=== PATIENT | female | born 1950 | race Caucasian/White ===

== ENCOUNTER 2018-01-26 13:07 | Inpatient (IN) | payer OTHER, MEDICARE ==
[~2018-01-26] VITALS: Ht 167.6 cm; Wt 138.0 kg
[2018-01-26 15:58] LABS: ABSOLUTE BASOPHIL COUNT 0 /CUMM (0.0-0.2); ABSOLUTE EOSINOPHIL COUNT 0.2 /CUMM (0.0-0.7); ABSOLUTE GRANULOCYTE CT 4.5 /CUMM (1.4-6.5); ABSOLUTE LYMPH COUNT 1.6 /CUMM (1.2-3.4); ABSOLUTE MONOCYTE COUNT 0.4 /CUMM (0.10-0.60); BASOPHIL % 0.7 % (0.0-2.0); EOSINOPHIL % 3.1 % (0-5); GRANULOCYTE % 66.6 % (42.2-75.2); HEMATOCRIT 43.3 % (37-47); MEAN CORPUSCULAR HGB 28.6 PG (27.0-31.0); MEAN CORPUSCULAR HGB CONC 32.7 G/DL (33.0-37.0); MEAN CORPUSCULAR VOLUME 87.6 FL (81.0-99.0); MEAN PLATELET VOLUME 8.6 FL (7.4-10.4); PLATELET COUNT 324 /CUMM (130-400); RBC DISTRIBUTION WIDTH 14.9 % (11.5-14.5); RED BLOOD CELL CT 4.94 /CUMM (4.20-5.40); WHITE BLOOD CELL COUNT 6.7 /CUMM (4.8-10.8)
--- NOTE | 2018-01-26 17:10 | ED GENERAL ADULT ---
History of Present Illness General Chief Complaint: Skin Rash/ Abcess Stated Complaint: SWELLING TO L SIDE OF FACE Source: patient Exam Limitations: no limitations Vital Signs & Intake/Output Vital Signs & Intake/Output Vital Signs Date Time Temp Pulse Resp B/P B/P Pulse O2 O2 Flow FiO2 Mean Ox Delivery Rate 01/26 1721 97.0 70 18 134/62 97 Room Air 01/26 1314 99.2 83 18 164/77 96 Room Air Room Air Allergies Coded Allergies: sulfamethoxazole (From BACTRIM) (HIVES 01/26/18) trimethoprim (From BACTRIM) (HIVES 01/26/18) Triage Note: TRIAGE: 67 Y/O FEMALE PRESENTS C/O BACTERIAL INFECTION/ SWELLING OT LEFT SIDE OF FACE SINCE SATURDAY. CURRENTLY ON ABX. TEMP IN TRIAGE: 99.2. Triage Nurses Notes Reviewed? yes Onset: Abrupt Duration: day(s): (5-6), constant, continues in ED, getting worse Timing: single episode today Injury Environment: home Severity: mild, moderate Severity Numbers: 7 No Modifying Factors: none LMP (ages 10-50): unknown : No Patient currently breastfeeds: No HPI: 67-year-old female past medical history of diabetes presents for evaluation of pain swelling and redness in her left maxillary/inferior orbital area. Patient reports that symptoms started 5 or 6 days ago to be getting worse. She went to her primary care doctor on and was started on cephalexin 500 mg 3 times daily. She's been taking this as directed reports that the redness pain and swelling is spreading. It is now starting to develop around her inferior eye. She reports that she has pain with extraocular motion. No changes in vision. She does report subjective fevers. No eye redness or discharge. No chest pain shortness of breath no headaches. NO TRAUMA. (Gerald Montes) Past History Travel History Traveled to [place] past 21 day No Medical History Any Pertinent Medical History? see below for history Endocrine: diabetes Surgical History Surgical History: non-contributory Psychosocial History What is your primary language Guyanese Tobacco Use: Never used ETOH Use: occasional use Illicit Drug Use: denies illicit drug use Family History Hx Contributory? No (Gerald Montes) Review of Systems Review of Systems Constitutional: Reports: no symptoms. EENTM: Reports: see HPI. Respiratory: Reports: no symptoms. Cardiovascular: Reports: no symptoms. GI: Reports: no symptoms. Genitourinary: Reports: no symptoms. Musculoskeletal: Reports: no symptoms. Skin: Reports: see HPI, erythema. Neurological/Psychological: Reports: no symptoms. Hematologic/Endocrine: Reports: no symptoms. Immunologic/Allergic: Reports: no symptoms. All Other Systems: Reviewed and Negative (Gerald Montes) Physical Exam Physical Exam General Appearance: well developed/nourished, no apparent distress, alert, awake Head: atraumatic, normal appearance Eyes: Bilateral: normal appearance, PERRL, EOMI. Ears, Nose, Throat: normal pharynx, normal ENT inspection, hearing grossly normal, THERE IS PAIN SWELLING AND REDNESS IN THE LEFT MAXILLARY AREA THAT EXTENDS UP INTO THE INFERIOR PERIORBITAL AREA. tHE AREA IS INDURATED WITHOUT FOCAL FLUCTUANT AREAS. nO DISCHARGE. eXTRAOCULAR MOTION IS INTACT BUT WITH PAIN ON THE LEFT SIDE. nO CONJUNCTIVAL INJECTION NO DISCHARGE. Neck: normal inspection, supple, full range of motion Respiratory: normal breath sounds, chest non-tender, no respiratory distress, lungs clear Cardiovascular: regular rate/rhythm, normal peripheral pulses Peripheral Pulses: 2+ radial (R), 2+ radial (L) Gastrointestinal: soft, non-tender Back: normal inspection, normal range of motion, no vertebral tenderness Extremities: normal inspection, normal range of motion, no edema Neurologic/Psych: no motor/sensory deficits, awake, alert, oriented x 3, normal gait Skin: intact, normal color, warm/dry Lymphatic: no anterior cervical poncho Core Measures ACS in differential dx? No CVA/TIA Diagnosis: No Sepsis Present: No Sepsis Focused Exam Completed? No (Gerald Montes) Progress Differential Diagnoses I considered the following diagnoses in my evaluation of the patient: [Orbital cellulitis, periorbital cellulitis, abscess, sinusitis, dental infection, dental abscess] Plan of Care: Orders Procedure Date/time Status Consistent Carbohydrate 2 01/27 B Active Pathway - chart 01/26 180 Active House Staff 01/26 180 Active Patient Data 01/26 180 Active Code Status 01/26 180 Active Patient Data 01/26 1800 Active OXYGEN SETUP (GEN) 01/26 175 Active Saline Lock 01/26 175 Active Admit to inpatient 01/26 1750 Active Vital Signs 01/26 1750 Active Activity/Ambulation 01/26 175 Active Code Status 01/26 1750 Complete BLOOD CULTURE 01/26 1503 Active TROPONIN LEVEL 01/26 1503 Complete LACTIC ACID 01/26 1503 Complete C-REACTIVE PROTEIN 01/26 1503 Complete COMPREHENSIVE METABOLIC PANEL 01/26 1503 Complete CBC WITHOUT DIFFERENTIAL 01/26 1503 Complete Intake & Output 01/26 1313 Active VTE Mechanical Prophylaxis 01/26 UNK Active Current Medications Sig/Sandhya Start time Last Medication Dose Stop Time Status Admin Enoxaparin Sodium 40 MG DAILY 01/26 180 AC (Lovenox) Laboratory Tests 01/26/18 180: Lactic Acid Cancelled 01/26/18 1510: Anion Gap 12, Estimated GFR > 60, BUN/Creatinine Ratio 17.5, Glucose 108 H, Lactic Acid 1.5, Calcium 9.8, Total Bilirubin 0.6, AST 27, ALT 45, Alkaline Phosphatase 92, Troponin I < 0.01, C-Reactive Prot, Quant 1.9 H, Total Protein 7.5, Albumin 4.2, Globulin 3.3, Albumin/Globulin Ratio 1.3, CBC w Diff NO MAN DIFF REQ, RBC 4.94, MCV 87.6, MCH 28.6, MCHC 32.7 L, RDW 14.9 H, MPV 8.6, Gran % 66.6, Lymphocytes % 23.2, Monocytes % 6.4, Eosinophils % 3.1, Basophils % 0.7, Absolute Granulocytes 4.5, Absolute Lymphocytes 1.6, Absolute Monocytes 0.4, Absolute Eosinophils 0.2, Absolute Basophils 0 Microbiology 01/26 1615 BLOOD: Blood Culture - RECD 01/26 1554 BLOOD: Blood Culture - RECD Patient seen and evaluated. She is evidence of periorbital cellulitis on exam. She's been taking oral antibiotic without any improvement. Extraocular motion is intact but with pain on the left side. She has a very low-grade temp here. Labs are obtained and do not show any acute findings no white count negative lactic acid. A CT scan of the orbital area shows evidence of preseptal cellulitis. Patient was started on Unison cultures obtained. Patient will be at admitted to the hospital due to failed outpatient treatment with oral antibiotics. She'll require IV antibiotics, serial labs, ENT/ophthalmology and serial exams. Case discussed with Dr. Charlton HE AGREES. Diagnostic Imaging: Viewed by Me: CT Scan. Discussed w/RAD: CT Scan. Radiology Impression: PATIENT: CYNDI NUNEZ PRESENT AGE: 67 PATIENT ACCOUNT NO: [id number] : 52 LOCATION: [facility] ORDERING PHYSICIAN: Gerald SANCHEZ SERVICE DATE: 01/26/185514 EXAM TYPE: CAT - CT MAXILLOFACIAL W CONT EXAMINATION: CT MAXILLOFACIAL WITH CONTRAST CLINICAL INFORMATION: Left maxillary and inferior orbital pain and swelling with concern for cellulitis, abscess, sinusitis. COMPARISON: None TECHNIQUE: Multidetector helical imaging was performed in the axial plane with generation of coronal and sagittal reformatted images. The examination was performed after the administration of 94 mL of Optiray 320 intravenous contrast DLP: 702.11 mGy-cm FINDINGS: Mild left preseptal soft tissue swelling and edema without discrete enhancing fluid collection or abscess. No post septal soft tissue edema or inflammatory changes. The globe is intact and unremarkable in appearance. The right globe, preseptal and postseptal soft tissues are unremarkable. FRONTAL SINUSES AND DRAINAGE PATHWAYS: Normal. MAXILLARY SINUSES AND DRAINAGE PATHWAYS: Normal. ETHMOID SINUSES: Normal. SPHENOID SINUSES AND DRAINAGE PATHWAYS: Normal. ADDITIONAL RELEVANT FINDINGS: The ostiomeatal complexes are well-aerated. The lamina papyracea are intact. The nasal passages are clear. The carotid canals are normally covered by bone. The ethmoid roofs are symmetric. No periapical disease is seen. Horizontally oriented bony impacted third mandibular molars bilaterally. The TMJs and orbits are normal. The visualized mastoid air cells are clear. Soft tissue density in the bilateral external auditory canals most likely represents cerumen. Limited evaluation demonstrates no acute intracranial findings. There are scattered small intraparotid lymph nodes bilaterally. Degenerative changes of the partially visualized cervical spine. IMPRESSION: Left orbital preseptal cellulitis without discrete fluid collection or abscess. The globe and retrobulbar soft tissues are within normal limits. No paranasal sinus disease. DICTATED BY: Jamarcus Bledsoe MD DATE/TIME DICTATED:01/26/181715 HELIUM ARC WELDER:MAYNOR DATE/TIME TRANSCRIBED:01/26/181715 Initial ED EKG: none (Gerald Montes) Departure Departure Disposition: STILL A PATIENT Condition: Stable Clinical Impression Primary Impression: Periorbital cellulitis of left eye Referrals: Patient Has No Primary Care Dr (PCP/Family) Departure Forms: Customer Survey General Discharge Information Admission Note Spoke With: Malka Truong MD Documentation of Exam: Documentation of any treatments & extenuating circumstances including Concerns Regarding Discharge (functional status, medication knowledge or non-compliance, living conditions, etc.) that warrant an admission rather than observation: [ Patient is failed outpatient therapy with oral antibiotics. The redness is continuing to spread and now involves the inferior periorbital area. She will require IV antibiotics, serial labs, ENT/ophthalmology, monitoring of vital signs, IV pain meds] (Gerald Montes) PA/CLOTH GRADER SUPERVISOR Co-Sign Statement Statement: ED Attending supervision documentation- x I saw and evaluated the patient. I have also reviewed all the pertinent lab results and diagnostic results. I agree with the findings and the plan of care as documented in the PA's/CLOTH GRADER SUPERVISOR's documentation. Worsening facial cellulitis on oral antibiotics with preseptal infection. [] I have reviewed the ED Record and agree with the PA's/CLOTH GRADER SUPERVISOR's documentation. [] Additions or exceptions (if any) to the PAs/CLOTH GRADER SUPERVISOR's note and plan are summarized below: [] (Lizandro SOLANO,Boubacar) Critical Care Note Critical Care Note Critical Care Time: non-applicable (Gerald Montes)
--- NOTE | 2018-01-26 17:28 | CT SCAN REPORT ---
EXAMINATION: CT MAXILLOFACIAL WITH CONTRAST CLINICAL INFORMATION: Left maxillary and inferior orbital pain and swelling with concern for cellulitis, abscess, sinusitis. COMPARISON: None TECHNIQUE: Multidetector helical imaging was performed in the axial plane with generation of coronal and sagittal reformatted images. The examination was performed after the administration of 94 mL of Optiray 320 intravenous contrast DLP: 702.11 mGy-cm FINDINGS: Mild left preseptal soft tissue swelling and edema without discrete enhancing fluid collection or abscess. No post septal soft tissue edema or inflammatory changes. The globe is intact and unremarkable in appearance. The right globe, preseptal and postseptal soft tissues are unremarkable. FRONTAL SINUSES AND DRAINAGE PATHWAYS: Normal. MAXILLARY SINUSES AND DRAINAGE PATHWAYS: Normal. ETHMOID SINUSES: Normal. SPHENOID SINUSES AND DRAINAGE PATHWAYS: Normal. ADDITIONAL RELEVANT FINDINGS: The ostiomeatal complexes are well-aerated. The lamina papyracea are intact. The nasal passages are clear. The carotid canals are normally covered by bone. The ethmoid roofs are symmetric. No periapical disease is seen. Horizontally oriented bony impacted third mandibular molars bilaterally. The TMJs and orbits are normal. The visualized mastoid air cells are clear. Soft tissue density in the bilateral external auditory canals most likely represents cerumen. Limited evaluation demonstrates no acute intracranial findings. There are scattered small intraparotid lymph nodes bilaterally. Degenerative changes of the partially visualized cervical spine. IMPRESSION: Left orbital preseptal cellulitis without discrete fluid collection or abscess. The globe and retrobulbar soft tissues are within normal limits. No paranasal sinus disease.
--- NOTE | 2018-01-26 17:59 | History & Physical ---
Louise SOLANO,[facility] 01/26/18 9980: General Information and HPI MD Statement: I have seen and personally examined CYNDI NUNEZ and documented this H&P. The patient is a 67 year old F who presented with a patient stated chief complaint of [cellulitis of the left side of the face]. Source of Information: patient Exam Limitations: no limitations History of Present Illness: 67-year-old lady with past medical history of hypothyroidism, diabetes, depression him to [facility] following a failed outpatient cellulitis treatment. Until last daily patient was in usual state of health, started having redness below her left eye followed by swelling 2 days later. Patient went to her primary care physician gave her Keflex. But the pain and swelling continued until today. Patient also felt fuzzy in her left eye today morning. She denies decreased vision, eye pain, eye swelling, caries tooth, chest pain, shortness of breath, fever, cough, yet pain, pain on eye movement, recurrent cellulitis in the past. Denies bowel/bladder irregularity. Patient sees Denisse NELSON for depression. Doesn't use cane or walker at home. Lives alone. Complaint with her medications. Allergies/Medications Allergies: Coded Allergies: sulfamethoxazole (From [facility]IM) ([facility] 01/26/18) trimethoprim (From [facility]RIM) ([facility] 01/26/18) Home Med list Aripiprazole (Abilify) 10 MG TABLET 1 TAB PO DAILY MENTAL HEALTH (Reported) Cephalexin 500 MG CAPSULE 1 CAP PO TID ABX (Reported) Ergocalciferol (Vitamin D2) (Vitamin D2) 50,000 UNIT CAPSULE 1 CAP PO QSUN SUPPLEMENT (Reported) Lamotrigine 25 MG TABLET 3 TAB PO DAILY MENTAL HEALTH (Reported) Levothyroxine Sodium 200 MCG TABLET 1 TAB PO DAILY THYROID (Reported) Metformin HCl 500 MG TABLET 1 TAB PO BID DM (Reported) Nystatin 100,000 UNIT/GRAM CREAM..G. 1 KATHRYN TOP BID SKIN FOLDS (Reported) apply to affected area(s) Torsemide 20 MG TABLET 1 TAB PO DAILY DIURETIC (Reported) Vortioxetine Hydrobromide (Brintellix) 20 MG TABLET 1 TAB PO DAILY MENTAL HEALTH (Reported) Compliance With Home Meds: GOOD Past History Travel History Traveled to [place] past 21 day No Medical History Cardiovascular: NONE Respiratory: NONE Musculoskeletal: NONE Endocrine: diabetes, hypothyroidism Surgical History Surgical History: cholecystectomy, Past Family/Social History Family History Relations & Conditions if any FATHER SISTER Relation not specified for: FH: myocardial infarction FHx: lymphoma Psychosocial History Where do you live? Home Who Do You Live With? self Services at Home: None Primary Language: Yi Smoking Status: Never Smoked ETOH Use: occasional use Illicit Drug Use: denies illicit drug use Functional Ability ADLs Independent: dressing, eating, toileting, bathing. Ambulation: independent IADLs Independent: shopping, housework, finances, food prep, telephone, transportation , medication admin. Review of Systems Review of Systems Constitutional: Reports: no symptoms. Cardiovascular: Reports: no symptoms. Respiratory: Reports: no symptoms. GI: Reports: no symptoms. Genitourinary: Reports: no symptoms. Musculoskeletal: Reports: no symptoms. Skin: Reports: erythema. Exam & Diagnostic Data Last 24 Hrs of Vital Signs/I&O Vital Signs Date Time Temp Pulse Resp B/P B/P Pulse O2 O2 Flow FiO2 Mean Ox Delivery Rate 01/26 1721 97.0 70 18 134/62 97 Room Air 01/26 1314 99.2 83 18 164/77 96 Room Air Room Air Intake & Output 01/26 1600 01/26 0800 01/26 0000 Intake Total Output Total Balance Patient 300 lb Weight Weight Reported by Patient Measurement Method Physical Exam General Appearance Alert, Oriented X3, Cooperative, No Acute Distress Skin left cheek just below the eye 77 cm redness with the breakdown of skin. Erythema with swelling in the surrounding area seen Sepsis Skin Exam (color): Normal for Ethnicity Cardiovascular Regular Rate, Normal S1, Normal S2, systolic murmur Lungs Clear to Auscultation Abdomen Soft, No Tenderness, No Hepatospenomegaly Neurological Strength at 5/5 X4 Ext, Normal Tone, Sensation Intact, extraocular movement-not painful, no ptosis. Peripheral vision intact. Extremities bilateral leg chronic venous changes. Bilateral pulses felt. Body Front and Back (Adult) 1) Erythema and swelling Diagnostic Data Other Results Maxillofacial CAT scan Left orbital preseptal cellulitis without discrete fluid collection or abscess. The globe and retrobulbar soft tissues are within normal limits. Assessment/Plan Assessment: 65-year-old female with past medical history of hypothyroidism, depression, diabetes Came to [facility] with failed outpatient management for cellulitis. Admission vitals Temperature 90 and 0.2, pulse rate 80, respiratory rate 80, blood pressure 164/ 77, saturating 96 at room air Admission labs WBC 6.7, hemoglobin 14.1, platelet count 324, sodium 144, potassium 3.8, BUN 14, creatinine 0.8, lactic acid 1.5, troponin 0.01, C-reactive protein 1.[address] Left orbital preseptal cellulitis without discrete fluid collection or abscess. The globe and retrobulbar soft tissues are within normal limits. ED treatment IV Unasyn Assessment and plan 1. Left face erythema and swelling * Admit to general medical floor. Patient has 7x7 cm facial redness and swelling, not tender to touch. No acute vision changes. Eyelid appears normal with no swelling. Peripheral vision intact. Extraocular movement not painful. No history of any recent trauma to the face, sinusitis, ear infection. I doubt this is preseptal cellulitis though maxillofacial CAT scan shows preseptal cellulitis. This could be simple cellulitis not responding to by mouth antibiotics. We will continue monitoring for any vision changes, eyelid swelling, proptosis, diplopia, ophthalmoplegia, fever. For now No leukocytosis or fever. * Start on IV Unasyn and vanco covering MRSA * Pain management-acetaminophen, ibuprofen * Chronic medical condition hypothyroidism/diabetes/depression-continue home medication, levothyroxine 200 g, Abilify, torsemide, lamotrigine. * Accu-Chek 3 times a day at bedtime, NovoLog sliding scale insulin. Code-full code DVT prophylaxis-Alps, Lovenox. As Ranked By This Provider Problem List: 1. Periorbital cellulitis of left eye Core Measures/Misc (07/21) Acute Coronary Syndrome ACS Diagnosis: No Congestive Heart Failure Congestive Heart Failure Diagnosis No Cerebrovascular Accident CVA/TIA Diagnosis: No VTE (View Protocol) VTE Risk Factors Age>40 No Mechanical VTE Prophylaxis d/t Other No VTE Pharm Prophylaxis d/t Other Sepsis (View protocol) Sepsis Present: No Colby Sanders 03/25/18 1850: Resident Review Statement Resident Statement: examined this patient, discussed with recruiting internship Other Findings: Patient is a 67-year-old female with past medical history of hypothyroidism, diabetes, depression presents to the ER with chief complaint of cellulitis of the left side of the face after failing outpatient treatment with Keflex. Patient reports that last Saturday she noticed redness on the left side of her face. The redness worsened and after 2 days left side of her face was swollen. She was seen by her PCP who prescribed Keflex and advised her to go to the ER if symptoms do not get better. Patient continued to have symptoms and therefore came to the ER for evaluation. Denies any recent trauma, insect bite, sinus infection, dental work, upper respiratory infections, recent travel, or change in cosmetics. No history of acne, recurrent cellulitis, or boils. She denies any fever, chills, nausea, vomiting. She does not have any swelling of her eyelids or pain/restriction with ocular movement no vision change, no discharge or redness of the eyes. Vitals in the ED temperature 90.2, pulse 83, respiration 20, blood pressure 164/ 77, saturating 96% on room air Labs were within normal limit with mild elevation of C-reactive protein 1.9. CT showed left orbital preseptal cellulitis without discrete fluid collection or abscess. The glue and retrobulbar soft tissues were within normal limit, no sinus infection was noted. Physical exam Awake, alert, oriented, mild distress HEENT: Atraumatic, no swelling of the eyelids or ecchymosis noted. Extraocular movement intact. Pain, redness, and swelling noted in the left maxillary area that extends up to the inferior periorbital area on the left. No areas of fluctuation noted. No conjunctival injection, discharge. A small area of skin break with white pus noted over the center of the redness. Chest: Clear breath sounds, no adventitious sounds CVS: S1 and S2 heard, systolic murmur Extremities: Stasis dermatitis noticed in bilateral legs, pulses intact Assessment Cellulitis of the left face/ ? Preseptal cellulitis: Failed outpatient oral antibiotics Diabetes mellitus Hypothyroidism Depression Plan Admit patient to [facility] Continue IV Unasyn and will add Vancomycin for MRSA. Close monitoring to rule out orbital involvement including ophalmoplegia, proptosis, vision changes, diplopia. Blood cultures Consider ID consult if not getting better Accu-Cheks 3 times a day, Novolog SC Continue home medications for depression DVT prophylaxis subcutaneous Lovenox Full code Malka Truong 01/26/18 2258: Attending MD Review Statement Attending Statement Attending MD Statement: examined this patient, discuss w/resident/PA/SERVICE REPRESENTATIVE, agreed w/resident/PA/SERVICE REPRESENTATIVE, reviewed EMR data (avail), reviewed images, amended to note Attending Assessment/Plan: CC: Left sided facial pain and swelling PMH: DM, hypothyroidism, depression Patient came to ER for persistent swelling on the left side of the face just below her eye. She noticed mild redness and swelling on left cheek just inferior to left eye, approximately 5 days back with mild pain. Patient did not notice any pain while I movement, any sinus headache or congestion she was seen by PCP and was prescribed Keflex approximately 3 days back. Even with the oral antibiotics her swelling was worsening along with the redness and pain so she followed up with the primary care physician who suggested to go to ER. Patient denies any fever, chills, frontal headache, maxillary pain or congestion, nasal discharge, dental EKGs, ear pain, double vision, blurry vision, pain wild eyed movements. She has chronic bilateral lower extremity leg swelling which is unchanged. She is also diagnosed to have fungal infection in her inguinal and inframammary folds for which she was prescribed nystatin cream. Vitals: T max 99.2, pulse 83, RR 18, blood pressure 164/77, saturating 97% on room air. On exam: A O 3, cooperative, no acute distress, obese, neck supple, JVD normal, no lymphadenopathy, mucosa moist, no focal neurological deficit, no dependent edema, mild chronic skin changes bilateral lower extremity, fungal infection bilateral inframammary folds right more than left, bilateral inguinal folds left more than right CVS: S1-S2, RRR. RS: Clear to auscultate bilaterally. Abdomen: Soft, NT, ND, bowel sounds present. Cellulitis in left maxillary area infra or vital, extraocular movements intact, no pain, vision intact, mild tenderness on the left maxillary sinus and the area of cellulitis, superficial scab on the area but no punctum or abscess collection, no dental EKGs, no frontal or other maxillary sinus tenderness, no nasal discharge or congestion Maxillofacial CT scan with IV contrast: Left orbital preseptal cellulitis without discrete fluid collection or abscess. The globe and retrobulbar soft tissues are within normal limits. No paranasal sinus disease. Assessment and plan 67-year-old female with past medical history significant for diabetes and hypothyroidism presented in ER for worsening left facial swelling, redness, pain even after treatment with oral cephalexin for last 3 days. Patient does not have any subjective or objective fever. Local examination shows cellulitis in the maxillary area and the infra-orbital region left side. No evidence of fluid collection or fluctuation, superficial scab but no evidence of discharge or punctum. Mild tenderness on the affected area but no obvious sinus congestion or discharge. CT scan confirms the finding of preseptal cellulitis. Patient failed outpatient oral antibiotics and needs a broader spectrum antibiotics as she used to work in a long term. No history of MRSA infection in the past. Will broaden the coverage to vancomycin and Unasyn and clinically monitor. + Preseptal cellulitis of left orbit + Hx of DM, hypothyroidism, depression - Admit to general medicine - Follow blood cultures - Saline lock IV - Continue vancomycin and Unasyn - Repeat labs in a.m. - Continue all her home medications except metformin. Hold metformin and continue sliding scale insulin - Adequate pain control - Close monitoring for painful eye movement, vision changes, diplopia
[2018-01-26] MEDS ORDERED: METFORMIN HCL500 M3 PO (18:31)
[2018-01-26] MEDS ORDERED: LEVOTHYROXINE200 MC1 PO (18:31)
[2018-01-26] MEDS ORDERED: TORSEMIDE20 M1 PO (18:32)
[2018-01-26] MEDS ORDERED: LAMOTRIGINE25 M3 PO (18:32)
[2018-01-26] MEDS ORDERED: ABILIFY10 M1 PO (18:32)
[2018-01-26] MEDS ORDERED: BRINTELLIX20 M1 PO (18:32)
[2018-01-26] MEDS ORDERED: VITAMIN D250000 UNIT PO (18:33)
[2018-01-26] MEDS ORDERED: CEPHALEXIN500 M3 PO (18:33)
[2018-01-26] MEDS ORDERED: NYSTATIN15 G1 TOP (18:33)
[2018-01-26 22:10] VITALS: BP 124/78
--- NOTE | 2018-01-26 22:59 | Admission Certification ---
Admission Certification Certification Statement - As attending physician, I certify that at the time of - admission, based on clinical presentation, severity of - symptoms, need for further diagnostic testing and - therapeutic interventions, and risk of adverse outcomes - without in-hospital treatment, in my clinical assessment, - this patient requires an acute hospital stay for a minimum - of two nights or longer. I have also considered psychsocial - factors such as support system, advanced age, financial - issues, cognitive issues, and failed out-patient treatments, - past re-admission history, safety of patient, and lack of - compliance as applicable. Specific rationale supporting this admission is: Preseptal cellulitis, failed outpatient treatment
[2018-01-27 06:20] VITALS: BP 136/68
--- NOTE | 2018-01-27 07:37 | PN- Housestaff ---
Louise SOLANO,[facility] 01/27/18 0736: Subjective Follow-up For: Left preorbital cellulitis Complaints: complaint of pain around the cellulitis this site Subjective: Patient seen and examined at bedside. She complains of pain of 5 x 10 in the left side of the face. She denies chest pain, chest pressure, nausea, vomiting or abdominal pain. Review of Systems Constitutional: Reports: see HPI. Objective Last 24 Hrs of Vital Signs/I&O Vital Signs Date Time Temp Pulse Resp B/P B/P Pulse O2 O2 Flow FiO2 Mean Ox Delivery Rate 01/27 1449 97.8 78 18 126/72 96 01/27 0620 97.8 71 18 136/68 96 Room Air 01/26 2210 98.2 79 20 124/78 95 01/26 1721 97.0 70 18 134/62 97 Room Air Intake & Output 01/27 1600 01/27 0800 01/27 0000 Intake Total 848 048 6867 Output Total Balance 552 294 1390 Intake, IV 500 500 500 Intake, Oral 480 600 Number 0 Bowel Movements Patient 307 lb 307 lb Weight Weight Bed scale Bed scale Measurement Method Physical Exam General Appearance: Alert, Oriented X3, Cooperative, No Acute Distress Cardiovascular: Regular Rate, Normal S1, Normal S2, No Murmurs Lungs: Normal Air Movement Abdomen: Normal Bowel Sounds, Soft, No Tenderness Neurological: Strength at 5/5 X4 Ext, Normal Tone, Sensation Intact, Cranial Nerves 3-12 NL Extremities: No Edema Current Medications: Current Medications Sig/Sandhya Start time Last Medication Dose Route Stop Time Status Admin Acetaminophen 325 MG Q6-PRN PRN 01/26 1900 AC 01/27 PO 1420 Ampicillin Sodium/ 0 .STK-MED ONE 01/26 1625 DC Sulbactam Sodium .ROUTE Aripiprazole 10 MG DAILY 01/27 1000 AC 01/27 PO 0929 Enoxaparin Sodium 0 .STK-MED ONE 01/26 1838 DC SC Enoxaparin Sodium 40 MG DAILY 01/26 1802 AC 01/27 SC 0930 Insulin Aspart 0 TIDAC 01/27 0800 AC 01/27 SC 1213 Lamotrigine 75 MG DAILY 01/27 1000 AC 01/27 PO 0929 Levothyroxine Sodium 0.2 MG DAILY AC 01/27 0700 AC 01/27 PO 0549 Non-Formulary 0 SEE ADMIN CRITERIA 01/26 1930 UNVr Medication ANY Nystatin 1 KATHRYN TID 01/27 1600 UNVr TOP Oxycodone/ 1 TAB ONCE ONE 01/27 0200 DC 01/27 Acetaminophen PO 01/27 0201 0200 Torsemide 20 MG DAILY 01/27 1000 AC 01/27 PO 0929 Vancomycin HCl 1,500 MG Q12 01/27 2200 UNir Dextrose/Water 250 ML IV Vancomycin HCl 2,000 MG Q12 01/26 2200 DC 01/27 Sodium Chloride 500 [place] 0932 Vancomycin HCl 1,000 MG DAILY 01/26 1920 CAN Dextrose/Water 250 ML IV Last 24 Hrs of Lab/Madhav Results Last 24 Hrs of Labs/Mics: Laboratory Tests 01/27/18 0809: Anion Gap 12, Estimated GFR > 60, BUN/Creatinine Ratio 14.4, CBC w Diff NO MAN DIFF REQ, RBC 4.31, MCV 88.0, MCH 29.0, MCHC 33.0, RDW 14.8 H, MPV 7.9, Gran % 55.8, Lymphocytes % 31.5, Monocytes % 7.6, Eosinophils % 4.3, Basophils % 0.8, Absolute Granulocytes 2.7, Absolute Lymphocytes 1.5, Absolute Monocytes 0.4, Absolute Eosinophils 0.2, Absolute Basophils 0 01/26/18 1803: Lactic Acid Cancelled Microbiology 01/27 1548 BODY FLUID: Body Fluid Culture - ORD 01/27 1548 BODY FLUID: Gram Stain - ORD 01/27 1449 HEAD/NECK: Head/Neck Culture - ORD 01/27 1449 HEAD/NECK: Gram Stain - ORD 01/26 1856 BLOOD: Blood Culture - CAN Cancelled: DUPLICATE AT 1615 - SEE [id number] 01/26 1856 BLOOD: Blood Culture - CAN Cancelled: DUPLICATE SENT AT 1554 - SEE [id number] 01/26 1615 BLOOD: Blood Culture - RES 01/26 1554 BLOOD: Blood Culture - RES Assessment/Plan Assessment: 65-year-old female with past medical history of hypothyroidism, depression, diabetes Came to [facility] with failed outpatient management for cellulitis. Assessment and plan 1. Left face erythema and swelling * Patient has 7x7 cm facial redness and swelling,tender to touch. No acute vision changes. Eyelid appears normal with no swelling. Peripheral vision intact. Extraocular movement not painful. No history of any recent trauma to the face, sinusitis, ear infection. Patient started on Unasyn and vancomycin to cover for MRSA. Patient was seen by infectious disease who suggested continue vancomycin for now until cultures from the same site. [Cultures sent.] We will continue monitoring for any vision changes, eyelid swelling, proptosis, diplopia , ophthalmoplegia, fever. For now No leukocytosis or fever. * Pain management-acetaminophen, ibuprofen * Chronic medical condition hypothyroidism/diabetes/depression-continue home medication, levothyroxine 200 g, Abilify, torsemide, lamotrigine. * Accu-Chek 3 times a day at bedtime, NovoLog sliding scale insulin. Code-full code DVT prophylaxis-Alps, Lovenox Problem List: 1. Periorbital cellulitis of left eye Pain Ratin Pain Location: none Pain Goal: Remain pain free Pain Plan: tylenol Tomorrow's Labs & Rationales: cbc,bep Antoni Garza 01/27/18 1139: Attending MD Review Statement Attending Statement Attending MD Statement: examined this patient, discuss w/resident/PA/GLOVE CUTTER, agreed w/resident/PA/GLOVE CUTTER, discussed with family, reviewed EMR data (avail), discussed with nursing, discussed with case mgmt, reviewed images, amended to note Attending Assessment/Plan: Patient admitted here for preseptal orbital cellultiis and started on empiric antibitoics over weekend vancomycin/unasyn. Afebrile. Absent leukocyotsis. Denies any new complaints. Consult ID for appr abx. F/u cultures. Monitor clinically. RISS and titrate insulin as needed. Consider Opth consult i/p vs o/p if symtoms worsen.
[2018-01-27 09:37] LABS: ABSOLUTE BASOPHIL COUNT 0 /CUMM (0.0-0.2); ABSOLUTE EOSINOPHIL COUNT 0.2 /CUMM (0.0-0.7); ABSOLUTE GRANULOCYTE CT 2.7 /CUMM (1.4-6.5); ABSOLUTE LYMPH COUNT 1.5 /CUMM (1.2-3.4); ABSOLUTE MONOCYTE COUNT 0.4 /CUMM (0.10-0.60); BASOPHIL % 0.8 % (0.0-2.0); EOSINOPHIL % 4.3 % (0-5); GRANULOCYTE % 55.8 % (42.2-75.2); MEAN PLATELET VOLUME 7.9 FL (7.4-10.4); PLATELET COUNT 251 /CUMM (130-400); RBC DISTRIBUTION WIDTH 14.8 % (11.5-14.5); RED BLOOD CELL CT 4.31 /CUMM (4.20-5.40); WHITE BLOOD CELL COUNT 4.9 /CUMM (4.8-10.8)
[2018-01-27 10:04] LABS: HEMATOCRIT 37.9 % (37-47)
[2018-01-27 14:49] VITALS: BP 126/72
--- NOTE | 2018-01-27 15:33 | Cons- Infect Disease ---
General Information and HPI Consulting Request Date of Consult: 01/27/18 Requested By: Antoni Garza MD Reason for Consult: Cellulitis of the left face Source of Information: patient History of Present Illness: This is a 67-year-old woman with a history of diabetes, hypothyroidism and depression admitted on January 26 after presenting to the emergency room with a 5 day history of swelling and erythema below the left eye, with no associated fevers or chills, not responding to empiric treatment with Keflex, begun 3 days prior to admission. On admission she was afebrile. Laboratory data revealed a white blood cell count of 7000, BUN/creatinine 14 and 0.8, with normal liver enzymes. CT of the maxillofacial area revealed a left periorbital cellulitis with no discrete fluid collection or abscess and with no paranasal sinus disease. She was given 1 dose of Unasyn and then switched to Vancomycin. She has remained afebrile overnight and feels about the same since admission. Allergies/Medications Allergies: Coded Allergies: sulfamethoxazole (From BACTRIM) (HIVES 01/26/18) trimethoprim (From BACTRIM) (HIVES 01/26/18) Home Med List: Aripiprazole (Abilify) 10 MG TABLET 1 TAB PO DAILY MENTAL HEALTH (Reported) Cephalexin 500 MG CAPSULE 1 CAP PO TID ABX (Reported) Ergocalciferol (Vitamin D2) (Vitamin D2) 50,000 UNIT CAPSULE 1 CAP PO QSUN SUPPLEMENT (Reported) Lamotrigine 25 MG TABLET 3 TAB PO DAILY MENTAL HEALTH (Reported) Levothyroxine Sodium 200 MCG TABLET 1 TAB PO DAILY THYROID (Reported) Metformin HCl 500 MG TABLET 1 TAB PO BID DM (Reported) Nystatin 100,000 UNIT/GRAM CREAM..G. 1 KATHRYN TOP BID SKIN FOLDS (Reported) apply to affected area(s) Torsemide 20 MG TABLET 1 TAB PO DAILY DIURETIC (Reported) Vortioxetine Hydrobromide (Brintellix) 20 MG TABLET 1 TAB PO DAILY MENTAL HEALTH (Reported) Past History Travel History Traveled to [place] past 21 day No Medical History Blood Transfusion Hx: No EENT: NONE Cardiovascular: NONE Respiratory: NONE Gastrointestinal: NONE Hepatic: NONE Renal: NONE Musculoskeletal: NONE Psychiatric: depression Endocrine: diabetes, hypothyroidism Blood Disorders: NONE Cancer(s): NONE VESSEL MANAGER/Reproductive: NONE History of MRSA: No History of VRE: No History of CDIFF: No Isolation History: Standard Surgical History Surgical History: cholecystectomy, Family History Relations & Conditions If Any: FATHER SISTER Relation not specified for: FH: myocardial infarction FHx: lymphoma Psychosocial History Where Do You Live? Home Who Do You Live With? self Services at Home: None Primary Language: Albanian Smoking Status: Never Smoked ETOH Use: occasional use Illicit Drug Use: denies illicit drug use Functional Ability ADLs Independent: dressing, eating, toileting, bathing. Ambulation: independent IADLs Independent: shopping, housework, finances, food prep, telephone, transportation , medication admin. Review of Systems Review of Systems All Other Systems: Reviewed and Negative Exam & Diagnostic Data Last 24 Hrs of Vital Signs/I&O Vital Signs Date Time Temp Pulse Resp B/P B/P Pulse O2 O2 Flow FiO2 Mean Ox Delivery Rate 01/27 1449 97.8 78 18 126/72 96 01/27 0620 97.8 71 18 136/68 96 Room Air 01/26 2210 98.2 79 20 124/78 95 01/26 1721 97.0 70 18 134/62 97 Room Air Intake & Output 01/27 1600 01/27 0800 01/27 0000 Intake Total 308 746 6361 Output Total Balance 147 217 5555 Intake, IV 500 500 500 Intake, Oral 480 600 Number 0 Bowel Movements Patient 307 lb 307 lb Weight Weight Bed scale Bed scale Measurement Method Physical Exam Other Physical Findings: Afebrile. She is awake and alert in no acute distress. Skin reveals no rash. HEENT induration/slight fluctuance on the left side of face below the eye, nontender to palpation, with formation of a pustule; no proptosis or eye involvement. Neck is supple with no adenopathy. Lungs are clear. Heart regular rhythm with no murmur. Abdomen is obese, soft, nontender with positive bowel sounds. Back no CVA tenderness. Extremities no cyanosis, clubbing or edema. Neuro is without focality. Last 24 Hours of Lab Results: Laboratory Tests 01/27 01/26 0809 1803 Chemistry Sodium (137 - 145 mmol/L) 142 Potassium (3.5 - 5.1 mmol/L) 4.2 Chloride (98 - 107 mmol/L) 100 Carbon Dioxide (22 - 30 mmol/L) 30 Anion Gap (5 - 16) 12 BUN (7 - 17 mg/dL) 13 Creatinine (0.5 - 1.0 mg/dL) 0.9 Estimated GFR (>60 ml/min) > 60 BUN/Creatinine Ratio (7 - 25 %) 14.4 Lactic Acid Cancelled Hematology CBC w Diff NO MAN DIFF REQ WBC (4.8 - 10.8 /CUMM) 4.9 RBC (4.20 - 5.40 /CUMM) 4.31 Hgb (12.0 - 16.0 G/DL) 12.5 Hct (37 - 47 %) 37.9 MCV (81.0 - 99.0 FL) 88.0 MCH (27.0 - 31.0 PG) 29.0 MCHC (33.0 - 37.0 G/DL) 33.0 RDW (11.5 - 14.5 %) 14.8 H Plt Count (130 - 400 /CUMM) 251 MPV (7.4 - 10.4 FL) 7.9 Gran % (42.2 - 75.2 %) 55.8 Lymphocytes % (20.5 - 51.1 %) 31.5 Monocytes % (1.7 - 9.3 %) 7.6 Eosinophils % (0 - 5 %) 4.3 Basophils % (0.0 - 2.0 %) 0.8 Absolute Granulocytes (1.4 - 6.5 /CUMM) 2.7 Absolute Lymphocytes (1.2 - 3.4 /CUMM) 1.5 Absolute Monocytes (0.10 - 0.60 /CUMM) 0.4 Absolute Eosinophils (0.0 - 0.7 /CUMM) 0.2 Absolute Basophils (0.0 - 0.2 /CUMM) 0 Last 24 Hours of Madhav Results: Blood cultures 2 January 26 negative Diagnostic Data Recent Imaging Findings: ET of the maxillofacial area reveals a left periorbital cellulitis with no discrete fluid collection and with no paranasal sinus disease Assessment/Plan Assessment/Plan Impression: This is a 67-year-old woman with a history of diabetes admitted on January 26 with a 5 day history of swelling and erythema below the left eye, with no associated fevers or chills, not responding to empiric treatment with Keflex, begun 3 days prior to admission, found on admission to be afebrile with a normal white blood cell count and with a CT of the maxillofacial area revealing a left periorbital cellulitis with no discrete fluid collection. She appears to have a localized infection on the face below the eye with what appears to be the development of a pustule, suggestive of a possible underlying abscess. She has no fever or leukocytosis but do feel that antibiotics should be continued. MRSA is certainly a concern and, if possible, an aspiration and/or I &D of this developing collection should be pursued to identify the bacteria responsible and provide the appropriate antibiotic coverage. Suggestion: 1. Could attempt an aspiration of the developing collection 2. Consider surgical or plastic surgery evaluation for an I&D 3. Warm compresses to the left side of her face 4. Continue Vancomycin but would decrease to 1.5 g IV every 12 hours pending above Consult Acknowledgment - Thank you for your consult request.
[2018-01-27 22:50] VITALS: BP 120/74
[2018-01-28 06:59] VITALS: BP 124/72
--- NOTE | 2018-01-28 07:14 | PN- Housestaff ---
Louise SOLANO,Conchita 01/28/18 0714: Subjective Follow-up For: Left sujata Orbital cellulitis Complaints: no complaints Subjective: Patient seen and examined at bedside. She is in no acute distress. No overnight events. She denies pain in the left side of the face. Review of Systems Constitutional: Reports: see HPI. Objective Last 24 Hrs of Vital Signs/I&O Vital Signs Date Time Temp Pulse Resp B/P B/P Pulse O2 O2 Flow FiO2 Mean Ox Delivery Rate 01/28 0659 98.3 63 20 124/72 95 Room Air 01/27 2250 98.3 68 20 120/74 95 Room Air 01/27 1449 97.8 78 18 126/72 96 Intake & Output 01/28 1600 01/28 0800 01/28 0000 Intake Total 200 550 Output Total Balance 200 550 Intake, IV 250 Intake, Oral 200 300 Patient 305 lb Weight Weight Bed scale Measurement Method Physical Exam General Appearance: Alert, Oriented X3, Cooperative, No Acute Distress Skin: left face-swelling and redness is reduced. There is a prominent induration which I assume secondary due to cultures taken yesterday. Cardiovascular: Regular Rate, Normal S1, Normal S2, No Murmurs Lungs: Clear to Auscultation, Normal Air Movement Abdomen: Soft, No Tenderness, No Hepatospenomegaly Neurological: Strength at 5/5 X4 Ext, Normal Tone, Sensation Intact Extremities: No Cyanosis, No Edema, Normal Pulses Vascular: Normal Pulses Current Medications: Current Medications Sig/Sandhya Start time Last Medication Dose Route Stop Time Status Admin Acetaminophen 325 MG .STK-MED ONE 01/27 1419 DC PO 01/27 1420 Acetaminophen 325 MG Q6-PRN PRN 01/26 1900 AC 01/28 PO 0957 Aripiprazole 10 MG DAILY 01/27 1000 AC 01/28 PO 0956 Enoxaparin Sodium 40 MG DAILY 01/26 1802 AC 01/28 SC 0956 Insulin Aspart 0 TIDAC 01/27 0800 AC 01/27 SC 1213 Lamotrigine 75 MG DAILY 01/27 1000 AC 01/28 PO 0956 Levothyroxine Sodium 0.2 MG DAILY AC 01/27 0700 AC 01/28 PO 0545 Nystatin 1 KATHRYN TID 01/27 1600 AC 01/28 TOP 0955 Oxycodone/ 1 TAB ONCE ONE 01/27 2315 DC 01/27 Acetaminophen PO 01/27 2316 2327 Torsemide 20 MG DAILY 01/27 1000 AC 01/28 PO 0957 Vancomycin HCl 1,500 MG Q12 01/27 2200 AC 01/28 Dextrose/Water 250 ML IV 0958 Vancomycin HCl 2,000 MG Q12 01/26 2200 DC 01/27 Sodium Chloride 500 ML IV 0932 Last 24 Hrs of Lab/Madhav Results Last 24 Hrs of Labs/Mics: Microbiology 01/27 1548 BODY FLUID: Body Fluid Culture - COLB 01/27 1548 BODY FLUID: Gram Stain - COLB 01/27 1545 HEAD/NECK: Head/Neck Culture - RES 01/27 154 HEAD/NECK: Gram Stain - RES Assessment/Plan Assessment: 65-year-old female with past medical history of hypothyroidism, depression, diabetes Came to [place] [facility] with failed outpatient management for cellulitis. Assessment and plan 1. Left face erythema and swelling * Patient has 7x7 cm facial redness and and redness reduced. No acute vision changes. Eyelid appears normal with no swelling. Peripheral vision intact. Extraocular movement not painful. No history of any recent trauma to the face, sinusitis, ear infection. Patient started on Unasyn and vancomycin to cover for MRSA. Patient was seen by infectious disease doctor who suggested to discontinue Unasyn and continue vancomycin and send cultures from the cellulitic site. The same was sent yesterday. We will continue monitoring for any vision changes, eyelid swelling, proptosis, diplopia, ophthalmoplegia, fever. For now No leukocytosis or fever. * Pain management-acetaminophen, ibuprofen * Chronic medical condition hypothyroidism/diabetes/depression-continue home medication, levothyroxine 200 g, Abilify, torsemide, lamotrigine. * Accu-Chek 3 times a day at bedtime, NovoLog sliding scale insulin. Code-full code DVT prophylaxis-Alps, Lovenox Problem List: 1. Periorbital cellulitis of left eye Pain Ratin Pain Location: none Pain Goal: Remain pain free Pain Plan: Tylenol Tomorrow's Labs & Rationales: CBC, BEP Mansoor Garzamervat 01/28/18 1114: Attending Review Statement Attending Statement Attending MD Statement: examined this patient, discuss w/resident/PA/SEED EXPERT, agreed w/resident/PA/SEED EXPERT, discussed with family, reviewed EMR data (avail), discussed with nursing, discussed with case mgmt, reviewed images, amended to note Attending Assessment/Plan: Patient admitted here for preseptal orbital cellultiis and started on empiric antibitoics vancomycin. Afebrile. Absent leukocyotsis. Denies any new complaints. F/u ID for appr abx. F/u cultures. Monitor clinically. RISS and titrate insulin as needed. Consider Opth consult i/p vs o/p if symtoms worsen.
[2018-01-28 14:31] VITALS: BP 130/70
--- NOTE | 2018-01-28 14:49 | Discharge Summary ---
Visit Information Visit Dates Admission Date: 01/26/18 Discharge Date: 01/30/18 Hospital Course Course Attending Physician: Antoni Garza MD [facility]: 67-year-old lady with past medical history of hypothyroidism, diabetes, depression him to [facility] following a failed outpatient cellulitis treatment. Until last daily patient was in usual state of health, started having redness below her left eye followed by swelling 2 days later. Patient went to her primary care physician gave her Keflex. But the pain and swelling continued until today. Patient also felt fuzzy in her left eye today morning. She denies decreased vision, eye pain, eye swelling, caries tooth, chest pain, shortness of breath, fever, cough, yet pain, pain on eye movement, recurrent cellulitis in the past. Denies bowel/bladder irregularity. Patient sees Denisse NELSON for depression. Doesn't use cane or walker at home. Lives alone. Complaint with her medications. Hospital course: 1. Left periorbital cellulitis * Patient has 7x7 cm facial redness and and redness reduced since admission. No acute vision changes. Eyelid appears normal with no swelling. Peripheral vision intact. Extraocular movement not painful. No history of any recent trauma to the face, sinusitis, ear infection. Patient started on Unasyn and vancomycin to cover for MRSA. Patient was seen by infectious disease doctor who suggested to discontinue Unasyn and continue vancomycin and send cultures from the cellulitic site. The same was sent, and cultures came mass mixed venu. We will continue monitoring for any vision changes, eyelid swelling, proptosis, diplopia, ophthalmoplegia, fever. For now No leukocytosis or fever. * Pain management-acetaminophen, ibuprofen * Chronic medical condition hypothyroidism/diabetes/depression-continue home medication, levothyroxine 200 g, Abilify, torsemide, lamotrigine. * Accu-Chek 3 times a day at bedtime, NovoLog sliding scale insulin. Patient sent home with by mouth Augmentin for 6 more days and advised to follow- up with the primary care provider as outpatient with 1-2 weeks of discharge. Imaging Maxillofacial CAT scan with contrast Left orbital preseptal cellulitis without discrete fluid collection or abscess. The globe and retrobulbar soft tissues are within normal limits. No paranasal sinus disease Allergies: Coded Allergies: sulfamethoxazole (From BACTRIM) (HIVES 01/26/18) trimethoprim (From BACTRIM) (HIVES 01/26/18) Disposition Summary Disposition Principal Diagnosis: Left periorbital cellulites Additional Diagnosis: none Discharge Disposition: home or self care Discharge Instructions General Discharge Information Code Status: Full Code Patient's Diet: Diabetic diet Patient's Activity: As tolerated Follow-Up Instructions/Appts: Please follow-up with your primary care provider within 1-2 weeks of discharge. Medications at Discharge Discharge Medications: Stop taking the following medications: Cephalexin (Cephalexin) 500 MG CAPSULE ORAL THREE TIMES DAILY Qty = 30 Continue taking these medications: Levothyroxine Sodium (Levothyroxine Sodium) 200 MCG TABLET 1 Tablet ORAL DAILY Qty = 30 Comments: Last Taken: 01/29/18 Time: 6 AM Metformin HCl (Metformin HCl) 500 MG TABLET 1 Tablet ORAL TWICE DAILY Qty = 60 Comments: NOT GIVEN IN THE HOSPITAL Torsemide (Torsemide) 20 MG TABLET 1 Tablet ORAL DAILY Qty = 60 Comments: Last Taken: 01/29/18 Time: 10 AM Lamotrigine (Lamotrigine) 25 MG TABLET 3 Tablet ORAL DAILY Qty = 90 Comments: Last Taken: 01/29/18 Time: 10 AM Aripiprazole (Abilify) 10 MG TABLET 1 Tablet ORAL DAILY Qty = 30 Comments: Last Taken: 01/29/18 Time: 10 AM Vortioxetine Hydrobromide (Brintellix) 20 MG TABLET 1 Tablet ORAL DAILY Qty = 30 Comments: NOT GIVEN IN THE HOSPITAL Ergocalciferol (Vitamin D2) (Vitamin D2) 50,000 UNIT CAPSULE 1 Capsule ORAL EVERY SATURDAY Qty = 8 Comments: NOT GIVEN IN THE HOSPITAL Nystatin (Nystatin) 100,000 UNIT/GRAM CREAM..G. 1 Application On the skin TWICE DAILY Qty = 30 Instructions: apply to affected area(s) Comments: Last Taken: 01/29/18 Time: 10 AM Start taking the following new medications: Amoxicillin/Potassium Clav (Augmentin 875-125 Tablet) 875 MG-125 MG TABLET 1 Tablet ORAL TWICE DAILY Qty = 12 No Refills Copies To: jordon gomez
--- NOTE | 2018-01-28 16:10 | PN- Infect Dx ---
Subjective Subjective: Afebrile. She feels improved. Objective Last 24 Hrs of Vital Signs/I&O Vital Signs Date Time Temp Pulse Resp B/P B/P Pulse O2 O2 Flow FiO2 Mean Ox Delivery Rate 01/28 1431 98.4 69 20 130/70 95 Room Air 01/28 0659 98.3 63 20 124/72 95 Room Air 01/27 2250 98.3 68 20 120/74 95 Room Air Intake & Output 01/28 1600 01/28 0800 01/28 0000 Intake Total 730 200 550 Output Total Balance 730 200 550 Intake, IV 250 250 Intake, Oral 480 200 300 Number 1 Bowel Movements Patient 305 lb Weight Weight Bed scale Measurement Method Physical Exam Other Physical Findings: She appears comfortable in no acute distress HEENT decreased induration on the left side of her face below the eye, with no drainage, minimal erythema and no tenderness Results Last 24 Hours of Lab Results: No labs from today Last 24 Hours of Madhav Results: Left cheek culture January 27 light mixed venu, with rare gram-positive cocci on the gram stain Assessment/Plan ID Impression: Improved, with temperatures and white blood cell count remaining normal and with decreased induration of the left cheek on Vancomycin Day 2 of treatment for a localized cellulitis, status post aspiration of a small amount of fluid yesterday, with the culture only growing mixed skin venu so far. Suggestion: 1. Follow-up final culture 2. Continue Vancomycin pending above
[2018-01-28 22:23] VITALS: BP 124/62
[2018-01-29 06:36] VITALS: BP 124/68
--- NOTE | 2018-01-29 07:28 | PN- Housestaff ---
Conchita Gil MD 01/29/18 0728: Subjective Follow-up For: left periorbital cellulitis Complaints: no complaints Subjective: Patient seen and examined at bedside. She was lying in her bed comfortably. She complains of mild 3 x 10 pain in her left side of face. She denies vision changes, fever. Review of Systems Constitutional: Reports: see HPI. Objective Last 24 Hrs of Vital Signs/I&O Vital Signs Date Time Temp Pulse Resp B/P B/P Pulse O2 O2 Flow FiO2 Mean Ox Delivery Rate 01/29 0636 97.5 62 20 124/68 94 Room Air 01/28 2248 98.9 01/28 2223 68 20 124/62 97 Room Air 01/28 1431 98.4 69 20 130/70 95 Room Air Intake & Output 01/29 1600 01/29 0800 01/29 0000 Intake Total 50 800 Output Total Balance 50 800 Intake, IV 0 Intake, Oral 50 800 Number 0 Bowel Movements Patient 303 lb Weight Physical Exam General Appearance: Alert, Oriented X3, Cooperative, No Acute Distress Cardiovascular: Regular Rate, Normal S1, Normal S2, No Murmurs Lungs: Clear to Auscultation, Normal Air Movement Abdomen: Soft, No Tenderness, No Hepatospenomegaly Neurological: Strength at 5/5 X4 Ext, Normal Tone, Sensation Intact Extremities: No Cyanosis, No Edema, Normal Pulses Assessment/Plan Assessment: 65-year-old female with past medical history of hypothyroidism, depression, diabetes Came to [place] with failed outpatient management for cellulitis. Assessment and plan 1. Left face erythema and swelling * Patient has 7x7 cm facial redness and and redness reduced. No acute vision changes. Eyelid appears normal with no swelling. Peripheral vision intact. Extraocular movement not painful. No history of any recent trauma to the face, sinusitis, ear infection. Patient started on Unasyn and vancomycin to cover for MRSA. Patient was seen by infectious disease doctor who suggested to discontinue Unasyn and continue vancomycin and send cultures from the cellulitic site. She is growing mixed venu less likely for MRSA. We will discontinue vancomycin and restart Unasyn 3 g every 6. If patient continues improvement will change to by mouth Augmentin tomorrow. We will continue monitoring for any vision changes, eyelid swelling, proptosis, diplopia, ophthalmoplegia, fever. For now No leukocytosis or fever. * Pain management-acetaminophen, ibuprofen * Chronic medical condition hypothyroidism/diabetes/depression-continue home medication, levothyroxine 200 g, Abilify, torsemide, lamotrigine. * Accu-Chek 3 times a day at bedtime, NovoLog sliding scale insulin. Code-full code DVT prophylaxis-Alps, Lovenox Problem List: 1. Periorbital cellulitis of left eye Pain Ratin Pain Location: none Pain Goal: Remain pain free Pain Plan: tylenol Tomorrow's Labs & Rationales: cbc Antoni Garza 01/29/18 1115: Attending MD Review Statement Attending Statement Attending MD Statement: examined this patient, discuss w/resident/PA/LIGHT INDUSTRIAL SUPERVISOR, agreed w/resident/PA/LIGHT INDUSTRIAL SUPERVISOR, discussed with family, reviewed EMR data (avail), discussed with nursing, discussed with case mgmt, reviewed images, amended to note Attending Assessment/Plan: Patient admitted here for preseptal orbital cellultiis and started on empiric antibitoics vancomycin. Afebrile. Absent leukocyotsis. Denies any new complaints. F/u ID for appr abx at dsicharge. F/u cultures remain negative. Patient with clinical improvement at dsicharge. RISS and titrate insulin as needed. She is medically stable for discharge. F/u O/p PCP in 1 week of discharge.
[2018-01-29 08:11] LABS: ABSOLUTE BASOPHIL COUNT 0.1 /CUMM (0.0-0.2); ABSOLUTE EOSINOPHIL COUNT 0.3 /CUMM (0.0-0.7); ABSOLUTE GRANULOCYTE CT 2.7 /CUMM (1.4-6.5); ABSOLUTE LYMPH COUNT 1.9 /CUMM (1.2-3.4); ABSOLUTE MONOCYTE COUNT 0.4 /CUMM (0.10-0.60); BASOPHIL % 1.1 % (0.0-2.0); EOSINOPHIL % 5.9 % (0-5); GRANULOCYTE % 50.6 % (42.2-75.2); HEMATOCRIT 36.3 % (37-47); MEAN CORPUSCULAR HGB CONC 33.4 G/DL (33.0-37.0); MEAN CORPUSCULAR VOLUME 86.9 FL (81.0-99.0); MEAN PLATELET VOLUME 7.8 FL (7.4-10.4); PLATELET COUNT 247 /CUMM (130-400); RBC DISTRIBUTION WIDTH 14.9 % (11.5-14.5); RED BLOOD CELL CT 4.17 /CUMM (4.20-5.40); WHITE BLOOD CELL COUNT 5.3 /CUMM (4.8-10.8)
--- NOTE | 2018-01-29 11:09 | PN- Infect Dx ---
Subjective Subjective: Afebrile. She still notes mild discomfort in the left paranasal area Objective Last 24 Hrs of Vital Signs/I&O Vital Signs Date Time Temp Pulse Resp B/P B/P Pulse O2 O2 Flow FiO2 Mean Ox Delivery Rate 01/29 0636 97.5 62 20 124/68 94 Room Air 01/28 2248 98.9 01/28 2223 68 20 124/62 97 Room Air 01/28 1431 98.4 69 20 130/70 95 Room Air Intake & Output 01/29 1600 01/29 0800 01/29 0000 Intake Total 50 800 Output Total Balance 50 800 Intake, IV 0 Intake, Oral 50 800 Number 0 Bowel Movements Patient 303 lb Weight Physical Exam Other Physical Findings: She appears comfortable in no acute distress HEENT minimal induration of the left paranasal lesion, with mild tenderness on the superior aspect, with no fluctuance or drainage and with minimal erythema Results Last 24 Hours of Lab Results: Laboratory Tests 01/29 0725 Hematology CBC w Diff NO MAN DIFF REQ WBC (4.8 - 10.8 /CUMM) 5.3 RBC (4.20 - 5.40 /CUMM) 4.17 L Hgb (12.0 - 16.0 G/DL) 12.1 Hct (37 - 47 %) 36.3 L MCV (81.0 - 99.0 FL) 86.9 MCH (27.0 - 31.0 PG) 29.0 MCHC (33.0 - 37.0 G/DL) 33.4 RDW (11.5 - 14.5 %) 14.9 H Plt Count (130 - 400 /CUMM) 247 MPV (7.4 - 10.4 FL) 7.8 Gran % (42.2 - 75.2 %) 50.6 Lymphocytes % (20.5 - 51.1 %) 34.8 Monocytes % (1.7 - 9.3 %) 7.6 Eosinophils % (0 - 5 %) 5.9 H Basophils % (0.0 - 2.0 %) 1.1 Absolute Granulocytes (1.4 - 6.5 /CUMM) 2.7 Absolute Lymphocytes (1.2 - 3.4 /CUMM) 1.9 Absolute Monocytes (0.10 - 0.60 /CUMM) 0.4 Absolute Eosinophils (0.0 - 0.7 /CUMM) 0.3 Absolute Basophils (0.0 - 0.2 /CUMM) 0.1 Last 24 Hours of Madhav Results: Left facial culture January 27 mixed skin venu Blood cultures 2 January 26 negative Assessment/Plan ID Impression: Overall improved, with temperatures and white blood cell count remaining normal, on Vancomycin now Day 3 of treatment for a localized abscess/cellulitis of the left side of her face, with the culture from the recent aspiration only growing mixed skin venu. Suggestion: 1. Warm compresses to the left facial lesion 2. Surgical follow-up if her inflammation persists 3. Discontinue Vancomycin 4. Begin Unasyn 3 g IV every 6 hours, with a change to Augmentin 875 mg po every 12 hours if she continues to improve
--- NOTE | 2018-01-29 11:24 | Patient Discharge Instructions ---
Discharge Instructions General Discharge Information You were seen/treated for: Left periorbital cellulitis Watch for these problems: In Case of decreased vision, pain at the site of cellulitis, redness please go to the nearest emergency room Special Instructions: Please follow-up with your primary care provider within 1-2 weeks of discharge Diet Continue normal diet: No Recommended Diet: Diabetic Activity Full Activity/No Limits: No Activity Self Limited: Yes Acute Coronary Syndrome Inclusion Criteria At DC or during hospital stay patient has or had the following: ACS DIAGNOSIS No Discharge Core Measures Meds if any: Prescribed or Continued at Discharge Meds if any: NOT Prescribed or Continued at Discharge Congestive Heart Failure Inclusion Criteria At DC or during hospital stay patient has or had the following: CHF DIAGNOSIS No Discharge Core Measures Meds if any: Prescribed or Continued at Discharge Meds if any: NOT Prescribed or Continued at Discharge Cerebrovascular accident Inclusion Criteria At DC or during hospital stay patient has or had the following: CVA/TIA Diagnosis No Discharge Core Measures Meds if any: Prescribed or Continued at Discharge Meds if any: NOT Prescribed or Continued at Discharge Venous thromboembolism Inclusion Criteria VTE Diagnosis No VTE Type NONE VTE Confirmed by (Test) NONE Discharge Core Measures - Per Current guidelines, there needs to be overlap - treatment for the first 5 days of Warfarin therapy. - If discharged on Warfarin prior to 5 days of - overlap therapy, the patient will need to be - assessed for post discharge needs including - *Post discharge parental anticoagulation - *Warfarin and/or parental anticoagulation education - *Follow up date to check INR post discharge At least 5 days overlap therapy as Inpatient No Meds if any: Prescribed or Continued at Discharge Note: Overlap Therapy is Warfarin and Anticoagulant Meds if any: NOT Prescribed or Continued at Discharge
[2018-01-29 14:32] VITALS: BP 120/72
[2018-01-29 22:47] VITALS: BP 106/60
[2018-01-30 06:20] VITALS: BP 108/60
--- NOTE | 2018-01-30 07:09 | PN- Housestaff ---
See Addendum Subjective Follow-up For: left orbital cellulitis Complaints: no complaints Subjective: pt seen and examined at bedside. no over night events. no complaints. She denies pain in her left side of her face, nausea, vomitting, chest pain sob. Review of Systems Constitutional: Reports: see HPI. Objective Last 24 Hrs of Vital Signs/I&O Vital Signs Date Time Temp Pulse Resp B/P B/P Pulse O2 O2 Flow FiO2 Mean Ox Delivery Rate 01/30 0620 98.2 63 18 108/60 96 Room Air 01/29 2247 98.5 70 18 106/60 95 Room Air 01/29 1432 98.2 69 17 120/72 97 Room Air Intake & Output 01/30 1600 01/30 0800 01/30 0000 Intake Total 350 100 Output Total Balance 350 100 Intake, IV 250 Intake, Oral 100 100 Patient 303 lb Weight Weight Bed scale Measurement Method Physical Exam General Appearance: Alert, Oriented X3, Cooperative, No Acute Distress Cardiovascular: Regular Rate, Normal S1, Normal S2, No Murmurs Lungs: Clear to Auscultation Abdomen: Soft, No Tenderness, No Hepatospenomegaly Neurological: Normal Speech, Strength at 5/5 X4 Ext, Normal Tone, Sensation Intact Extremities: No Cyanosis, No Edema, Normal Pulses Vascular: Pulses Symmetrical Current Medications: Current Medications Sig/Sandhya Start time Last Medication Dose Route Stop Time Status Admin Acetaminophen 325 MG .STK-MED ONE 01/29 1453 DC PO 01/29 1454 Acetaminophen 325 MG Q6-PRN PRN 01/26 1900 AC 01/29 PO 1454 Ampicillin Sodium/ 3,000 MG Q6 01/29 1200 AC 01/30 Sulbactam Sodium IV 0614 Sodium Chloride 100 ML Aripiprazole 10 MG DAILY 01/27 1000 AC 01/30 PO 0920 Enoxaparin Sodium 40 MG DAILY 01/26 1802 AC 01/30 SC 0920 Ibuprofen 400 MG .STK-MED ONE 01/29 1119 DC PO 01/29 1120 Ibuprofen 400 MG TID PRN 01/28 1430 AC 01/30 PO 0609 Insulin Aspart 0 TIDAC 01/27 0800 AC 01/29 SC 1137 Lamotrigine 75 MG DAILY 01/27 1000 AC 01/30 PO 0919 Levothyroxine Sodium 0.2 MG DAILY AC 01/27 0700 AC 01/30 PO 0609 Nystatin 1 KATHRYN TID 01/27 1600 AC 01/30 TOP 0922 Oxycodone/ 1 TAB BID PRN 01/28 1430 AC 01/29 Acetaminophen PO 2136 Patient Medication 1 ED ONE ONE 01/29 1100 MS 01/29 Teaching ED 01/29 1101 1314 Torsemide 20 MG DAILY 01/27 1000 AC 01/30 PO 0919 Vancomycin HCl 1,500 MG Q12 01/27 2200 DC 01/29 Dextrose/Water 250 ML IV 1113 Last 24 Hrs of Lab/Madhav Results Last 24 Hrs of Labs/Mics: Laboratory Tests 01/30/18 0750: CBC w Diff NO MAN DIFF REQ, RBC 4.17 L, MCV 87.2, MCH 29.0, MCHC 33.2, RDW 14.5 , MPV 7.6, Gran % 57.8, Lymphocytes % 28.5, Monocytes % 7.8, Eosinophils % 5.3 H, Basophils % 0.6, Absolute Granulocytes 3.0, Absolute Lymphocytes 1.5, Absolute Monocytes 0.4, Absolute Eosinophils 0.3, Absolute Basophils 0 Assessment/Plan Assessment: 65-year-old female with past medical history of hypothyroidism, depression, diabetes Came to [facility] with failed outpatient management for cellulitis. Assessment and plan 1. Left face erythema and swelling * Patient has 7x7 cm facial redness and and SWELLING reduced. No acute vision changes. Eyelid appears normal with no swelling. Peripheral vision intact. Extraocular movement not painful. No history of any recent trauma to the face, sinusitis, ear infection. Patient started on Unasyn and vancomycin to cover for MRSA. Patient was seen by infectious disease doctor who suggested to discontinue Unasyn and continue vancomycin and send cultures from the cellulitic site. She is growing mixed venu less likely for MRSA. We will discontinue vancomycin and restartED Unasyn 3 g every 6. If patient continues improvement will change to by mouth Augmentin today and possible discharge. We will continue monitoring for any vision changes, eyelid swelling, proptosis, diplopia , ophthalmoplegia, fever. For now No leukocytosis or fever. * Pain management-acetaminophen, ibuprofen * Chronic medical condition hypothyroidism/diabetes/depression-continue home medication, levothyroxine 200 g, Abilify, torsemide, lamotrigine. * Accu-Chek 3 times a day at bedtime, NovoLog sliding scale insulin. Code-full code DVT prophylaxis-Margarito Basilio Problem List: 1. Periorbital cellulitis of left eye Pain Ratin Pain Location: none Pain Goal: Remain pain free Pain Plan: tylenol Tomorrow's Labs & Rationales: none
[2018-01-30 08:27] LABS: ABSOLUTE BASOPHIL COUNT 0 /CUMM (0.0-0.2); ABSOLUTE EOSINOPHIL COUNT 0.3 /CUMM (0.0-0.7); ABSOLUTE LYMPH COUNT 1.5 /CUMM (1.2-3.4); ABSOLUTE MONOCYTE COUNT 0.4 /CUMM (0.10-0.60); BASOPHIL % 0.6 % (0.0-2.0); EOSINOPHIL % 5.3 % (0-5); GRANULOCYTE % 57.8 % (42.2-75.2); HEMATOCRIT 36.3 % (37-47); MEAN CORPUSCULAR HGB CONC 33.2 G/DL (33.0-37.0); MEAN CORPUSCULAR VOLUME 87.2 FL (81.0-99.0); MEAN PLATELET VOLUME 7.6 FL (7.4-10.4); PLATELET COUNT 238 /CUMM (130-400); RBC DISTRIBUTION WIDTH 14.5 % (11.5-14.5); RED BLOOD CELL CT 4.17 /CUMM (4.20-5.40); WHITE BLOOD CELL COUNT 5.2 /CUMM (4.8-10.8)
[2018-01-30] MEDS ORDERED: AUGMENTIN 875-1 EACH PO ×4 (09:38→16:00)
[2018-01-30 14:48] VITALS: BP 100/60
--- NOTE | 2018-01-30 15:30 | PN- Infect Dx ---
Subjective Subjective: Afebrile. She feels improved. Objective Last 24 Hrs of Vital Signs/I&O Vital Signs Date Time Temp Pulse Resp B/P B/P Pulse O2 O2 Flow FiO2 Mean Ox Delivery Rate 01/30 1448 98.4 68 18 100/60 95 01/30 0620 98.2 63 18 108/60 96 Room Air 01/29 2247 98.5 70 18 106/60 95 Room Air Intake & Output 01/30 1600 01/30 0800 01/30 0000 Intake Total 2100 350 100 Output Total Balance 2100 350 100 Intake, IV 100 250 Intake, Oral 2000 100 100 Patient 304 lb 303 lb Weight Weight Bed scale Measurement Method Physical Exam Other Physical Findings: She appears comfortable in no acute distress HEENT decreased induration in the left perinasal area, with minimal tenderness and swelling Results Last 24 Hours of Lab Results: Laboratory Tests 01/30 0750 Hematology CBC w Diff NO MAN DIFF REQ WBC (4.8 - 10.8 /CUMM) 5.2 RBC (4.20 - 5.40 /CUMM) 4.17 L Hgb (12.0 - 16.0 G/DL) 12.1 Hct (37 - 47 %) 36.3 L MCV (81.0 - 99.0 FL) 87.2 MCH (27.0 - 31.0 PG) 29.0 MCHC (33.0 - 37.0 G/DL) 33.2 RDW (11.5 - 14.5 %) 14.5 Plt Count (130 - 400 /CUMM) 238 MPV (7.4 - 10.4 FL) 7.6 Gran % (42.2 - 75.2 %) 57.8 Lymphocytes % (20.5 - 51.1 %) 28.5 Monocytes % (1.7 - 9.3 %) 7.8 Eosinophils % (0 - 5 %) 5.3 H Basophils % (0.0 - 2.0 %) 0.6 Absolute Granulocytes (1.4 - 6.5 /CUMM) 3.0 Absolute Lymphocytes (1.2 - 3.4 /CUMM) 1.5 Absolute Monocytes (0.10 - 0.60 /CUMM) 0.4 Absolute Eosinophils (0.0 - 0.7 /CUMM) 0.3 Absolute Basophils (0.0 - 0.2 /CUMM) 0 Last 24 Hours of Madhav Results: Blood cultures January 26 negative Assessment/Plan ID Impression: Overall improved, with temperatures and white blood cell count remaining normal, now on Unasyn Day 4 of treatment for a localized abscess/cellulitis of the left side of her face, with the culture from the recent aspiration only growing mixed skin venu. Suggestion: 1. Discontinue Unasyn 2. Begin Augmentin 875 mg po every 12 hours for 3 more days
== END 2018-01-30 16:00 | DRG 603 ==
LOC: ERH 13:07 → 2NA 17:50 → ERHI 17:50 → ENRESERV 18:32 → ENTRNSPT 19:01 → 2NA 19:19 → CMPTRNSPT 19:28 → 2NA 01-27 08:34 → ENPENDDIS 01-30 13:33 → 2NA 01-30 16:00
PROVIDERS: Physician Assistant Medical; Student in an Organized Health Care Education/Training Program
DX: L03.213 Periorbital cellulitis (principal); E03.9 Hypothyroidism, unspecified; F32.9 Major depressive disorder, single episode, unspecified; E11.9 Type 2 diabetes mellitus without complications; Z88.2 Allergy status to sulfonamides; Z88.8 Allergy status to other drugs, medicaments and biological substances; Z79.84 Long term (current) use of oral hypoglycemic drugs; Z90.49 Acquired absence of other specified parts of digestive tract
CPT/HCPCS: 2NASP; 87075; 36415; 36592; 82436; 87040; 87070; 96365; J0401; J1650; J3370; J7040; J7060